=== PATIENT | male | born 1940 | race Caucasian/White ===

== ENCOUNTER 2020-01-14 15:06 | Emergency (ER) | payer MEDICARE ==
[~2020-01-14] VITALS: Ht 177.8 cm; Wt 71.2 kg
--- NOTE | 2020-01-14 15:12 | NUR ---
BIB RA FROM HOME, NOTED TO BE "SLEEPY" WHILE HAVING LUNCH AFTER THEY INCREASED THE SEROQUEL DOSAGE. RR IS EVEN AND UNLABORED WITH NAD NOTED. SKIN IS WARM AND DRY. PLACED ON THE MONITOR AND HOSPITAL GOWN. DR CARREON AT FOR EVAL.
[2020-01-14] MEDS ORDERED: IV NS 0.9% 500 ML BAG IV ONE (15:30)
--- NOTE | 2020-01-14 15:33 | NUR ---
OFFERED TO COLLECT URINE. PT UNABLE TO GIVE AT THIS TIME
[2020-01-14] MEDS ORDERED: ATOR10TA PO (15:34)
[2020-01-14] MEDS ORDERED: OLME20TA23 PO (15:34)
[2020-01-14] MEDS ORDERED: OXCA150T13 PO (15:34)
[2020-01-14] MEDS ORDERED: DIVA-76 PO (15:34)
[2020-01-14] MEDS ORDERED: QUET25TA PO (15:34)
--- NOTE | 2020-01-14 15:35 | NUR ---
PT TRANSPORTED TO CT VIA [facility]. V/S STABLE
--- NOTE | 2020-01-14 15:35 | NUR ---
XRAY DONE AT BEDSIDE
[2020-01-14 15:47] LABS: BASOPHILS % (AUTO) 0.5 % (0.0-2.0); EOSINOPHILS % (AUTO) 1.7 % (0.0-6.0); HEMATOCRIT 32 % (39-51); HEMOGLOBIN 11.3 g/dL (13.5-17.5); LYMPHOCYTES # (AUTO) 1.2 /CMM (0.8-4.8); LYMPHOCYTES % (AUTO) 26.5 % (20.0-44.0); MEAN CORPUSCULAR HGB CONC 35 g/dl (31.0-36.0); MEAN CORPUSCULAR VOLUME 100 fL (80-96); MONOCYTES # (AUTO) 0.5 /CMM (0.1-1.30); MONOCYTES % (AUTO) 10.4 % (2.0-12.0); NEUTROPHILS # (AUTO) 2.8 /CMM (1.8-8.9); NEUTROPHILS % (AUTO) 60.9 % (43.0-81.0); PLATELET COUNT (AUTO) 137 /CMM (150-450); RED BLOOD CELL COUNT(AUTO) 3.23 MIL/uL (4.5-6.0); WHITE BLOOD COUNT (AUTO) 4.7 K/uL (4.3-11.0)
[2020-01-14 16:02] LABS: CALCIUM, SERUM 8.3 mg/dL (8.5-10.1); CARBON DIOXIDE 24 mmol/L (21-32); CHLORIDE 91 mmol/L (98-107); CREATININE 1.1 mg/dL (0.6-1.3); GLUCOSE 104 mg/dL (74-106); SODIUM SERUM 125 mmol/L (136-145); UREA NITROGEN, BLOOD 16 mg/dL (7-18)
[2020-01-14 16:06] LABS: ALANINE AMINOTRANSFERASE 14 U/L (12-78); ALBUMIN 3.3 g/dL (3.4-5.0); ALKALINE PHOSPHATASE 43 U/L (46-116); ASPARTATE AMINOTRANSFERASE 20 U/L (15-37); BILIRUBIN,DIRECT 0.2 mg/dL (0.0-0.2); BILIRUBIN,TOTAL 0.5 mg/dL (0.2-1.0); TOTAL PROTEIN, SERUM 6.3 g/dL (6.4-8.2)
--- NOTE | 2020-01-14 16:14 | NUR ---
COVID SWAB TEST COLLECTED AND SENT TO LAB
--- NOTE | 2020-01-14 16:20 | NUR ---
PANEL ON-CALL PAGED
--- NOTE | 2020-01-14 16:27 | NUR ---
PT UNABLE TO COLLECT URINE. MADE AWARE
--- NOTE | 2020-01-14 17:28 | NUR ---
PT IN BED ASLEEP. EASILY AROUSABLE. NAD. NO PAIN OR DISCOMFORT. V/S STABLE
[2020-01-14] MEDS ORDERED: ONDANSETRON HCL/PF 4 MG/2 ML VIAL IVP PRN (17:30)
[2020-01-14] MEDS ORDERED: HYDROCODONE/APAP 5/325MG TABLET PO PRN (17:30)
[2020-01-14] MEDS ORDERED: HOME MED MISCELLANEOUS XX SCH (17:30)
[2020-01-14] MEDS ORDERED: MORPHINE SULFATE INJ 2 MG/ML DISP.SYRIN IV PRN (17:30)
[2020-01-14] MEDS ORDERED: IV NS 0.9% 1,000 ML IV PRN (17:30)
[2020-01-14] MEDS ORDERED: MAGNESIUM HYDROXIDE 30 ML UDC PO PRN (17:30)
[2020-01-14] MEDS ORDERED: TEMAZEPAM 15 MG CAPSULE PO PRN (17:30)
[2020-01-14] MEDS ORDERED: QUETIAPINE FUMARATE 25 MG TABLET PO PRN (17:30)
[2020-01-14] MEDS ORDERED: ACETAMINOPHEN 325 MG TABLET PO PRN (17:30)
[2020-01-14] MEDS ORDERED: MAG HYDROX/AL HYDROX/SIMETH 30 ML UDC PO PRN (17:30)
[2020-01-14] MEDS ORDERED: Z GUARD REMEDY 2 OZ OINT TP PRN (17:30)
--- NOTE | 2020-01-14 17:39 | NUR ---
DR CARREON IN COMMUNICATION WITH DAUGHTER THROUGH PHONE.
--- NOTE | 2020-01-14 17:41 | NUR ---
NURSING SUP GAVE TELE BED 113-1.
--- NOTE | 2020-01-14 17:46 | NUR ---
MD, DAUGHTER AND CAREGIVER AT BEDSIDE SPEAKING TO PATIENT VIA FACETIME TO DETERMINE IF PATIENT WILL BE DISCHARGED OR ADMITTED.
--- NOTE | 2020-01-14 18:03 | NUR ---
IV removed. Catheter intact and site benign. Pressure and 4x4 applied to site. No bleeding noted. Patient discharged to home with caregiver in stable condition. Written and verbal after care instructions given. Patient and caregiver verbalizes understanding of instruction. Assisted patient outside ER via wheelchair where they will wait for their roll picker.
[2020-01-14 18:05] VITALS: BP 153/87
[2020-01-14] MEDS ORDERED: OXCARBAZEPINE 150 MG TABLET PO SCH (22:00)
[2020-01-15] MEDS ORDERED: DIVALPROEX SODIUM 250 MG TABLET.DR PO SCH (09:00)
[2020-01-15] MEDS ORDERED: ATORVASTATIN 10 MG TABLET PO SCH (09:00)
== END 2020-01-14 18:05 | disposition home or self-care (01) ==
LOC: ER 15:06 → TELE1 17:45 → UNDOADMIN 17:45
DX: G92 Toxic encephalopathy (principal); T43.595A Adverse effect of other antipsychotics and neuroleptics, initial encounter; Y92.019 Unspecified place in single-family (private) house as the place of occurrence of the external cause; I10 Essential (primary) hypertension; E87.1 Hypo-osmolality and hyponatremia; D53.9 Nutritional anemia, unspecified; E44.0 Moderate protein-calorie malnutrition; Z68.22 Body mass index [BMI] 22.0-22.9, adult; K21.9 Gastro-esophageal reflux disease without esophagitis; M19.90 Unspecified osteoarthritis, unspecified site; Z96.653 Presence of artificial knee joint, bilateral; Z20.828 Contact with and (suspected) exposure to other viral communicable diseases; F03.90 Unspecified dementia, unspecified severity, without behavioral disturbance, psychotic disturbance, mood disturbance, and anxiety
CPT/HCPCS: 36415; 70450; 71045; 80048; 80076; 80320; 83605; 83935; 84145; 84484; 85025; 85730; 87040 ×2; 87426; 93005; 99285; J7040; 84300-TC; C9803; G0480

== ENCOUNTER 2020-07-03 13:20 | Emergency (ER) | payer MEDICARE ==
[~2020-07-03] VITALS: Ht 177.8 cm; Wt 68.0 kg
[~2020-07-03 13:20] MED LIST: ATOR10TA PO; DIVA-76 PO; OLME20TA23 PO; OXCA150T13 PO; QUET25TA PO
--- NOTE | 2020-07-03 13:30 | NUR ---
[facility] Caregiver Sarita From Home "found him kneling in the corner near side table- Nose injury/bleeding. +Dementia NO LOC". Patient awake alert, no distress noted. Needs attended.
[2020-07-03] MEDS ORDERED: MEMA14CA5 PO (14:30)
--- NOTE | 2020-07-03 14:57 | NUR ---
WOUND CARE DONE.
--- NOTE | 2020-07-03 15:17 | NUR ---
Patient discharged to home in stable condition. Written and verbal after care instructions given. Patient verbalizes understanding of instruction.
[2020-07-03 15:24] VITALS: BP 116/68
== END 2020-07-03 15:24 | disposition home or self-care (01) ==
LOC: ER 13:22
DX: S01.21XA Laceration without foreign body of nose, initial encounter (principal); S09.8XXA Other specified injuries of head, initial encounter; F03.90 Unspecified dementia, unspecified severity, without behavioral disturbance, psychotic disturbance, mood disturbance, and anxiety; I10 Essential (primary) hypertension; E78.00 Pure hypercholesterolemia, unspecified; Z98.890 Other specified postprocedural states; Z79.899 Other long term (current) drug therapy; W18.39XA Other fall on same level, initial encounter; Y93.89 Activity, other specified; Y92.89 Other specified places as the place of occurrence of the external cause; Y99.8 Other external cause status
CPT/HCPCS: 70450; 70486; 99285; A6403